=== PATIENT | female | born 1960 | race Caucasian/White ===

== ENCOUNTER 2017-07-06 11:32 | Emergency (ER) | payer MEDICARE, OTHER ==
[~2017-07-06] VITALS: Ht 162.6 cm; Wt 79.4 kg
[~2017-07-06 11:32] MED LIST: ALBUTEROL2.5 MG/0.5 INH; ASPIR-LOW81 MG PO; COMBIVENT INH14.7 GM INH; COMBIVENT RESPIM4 GM INH; COUMADIN3 MG PO; COUMADIN5 MG PO; CYCLOBENZAPRINE10 MG PO; FLUOXETINE HCL20 MG PO; GABAPENTIN300 MG PO; HYDROCODON-ACE1 EA11 PO; K-TAB10 MEQ; NORCO 5-325 TA1 EACH PO; POTASSIUM CHLO20 ME1 PO; PRAVACHOL40 MG PO; PRAVASTATIN SOD80 MG PO; PREDNISONE20 MG PO; SEROQUEL200 MG PO; TOPAMAX100 MG PO; TOPIRAMATE50 MG PO; ULTRA-LIGHT RO1 EACH MISC; WARFARIN SODIUM3 MG PO; ZYRTEC10 M3 PO
--- OUTSIDE RECORDS SUMMARY | 2017-07-06 13:43 | XMS ---
Demographics + + + | Address | [address] | | | [place] [address] | + + + | Preferred Language | Unknown | + + + | Marital Status | Unknown | + + + | Hindu Affiliation | Unknown | + + + | Race | Unknown | + + + | Ethnic Group | Unknown | + + + Author + + + | Author | [facility] | + + + | Organization | [facility] | + + + | Address | 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 | Role | Phone | + + + + Unavailable | Unavailable | + + + + PROBLEMS + + + + + + + + | Type | Condition | ICD9-CM | [id number] | Onset | Condition | SNOMED | | | | Code | Code | Dates | Status | Code | + + + + + + + + | Problem | CVA LATE | 438.9 | | | Active | [id number] | | | EFFECT - | | | | | | | | SEGUELAE | | | | | | + + + + + + + + | Problem | LONG-TERM | V58.61 | | | Active | [id number] | | | USE | | | | | | | | ANTICOAGUL | | | | | | + + + + + + + + | Problem | HX | V12.54 | | | Active | [id number] | | | TIA/STROKE | | | | | | | | W/O RESID | | | | | | + + + + + + + + | Assessment | 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 | 03 January, | Active | [id number] | | | 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 | | | | | | | | lumbar | | | | | | | | spine | | | | | | + + + + + + + + | Assessment | Sciatica | M54.30 | | 19 January, | Active | [id number] | | | | | | 2017 | | | + + + + + + + + | Problem | Insect | W57.XXXA | | | Active | [id number] | | | bite, | | | | | | | | initial | | | | | | | | encounter | | | | | | + + + + + + + + | Problem | Cellulitis | | L03.119 | | Active | [id number] | | | of | | | | | | | | unspecifie | | | | | | | | d part of | | | | | | | | limb | | | | | | + + + + + + + + | Problem | Breast | V76.10 | | | Active | [id number] | | | screening | | | | | | + + + + + + + + | Problem | Shoulder | 726.10 | | | Active | [id number] | | | bursitis | | | | | | + + + + + + + + | 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 | | | | | | | | cardiovasc | | | | | | | | ular | | | | | | | | disease | | | | | | + + + + + + + + | Problem | Hyperlipem | | E78.5 | | Active | [id number] | | | ia | | | | | | + + + + + + + + ALLERGIES + + + + +--------+ | Substance | Reaction | Event Type | Date | Status | + + + + +--------+ | Dilantin | rash | Drug Allergy | January, | Active | + + + + +--------+ | Depakote | seizures | Drug Allergy | January, | Active | + + + + +--------+ | Benadryl | wires | Drug Allergy | January, | Active | + + + + +--------+ SOCIAL HISTORY No smoking Hx information available PLAN OF CARE VITAL SIGNS + + + + | Height | 64 in | 2017-01-19 | + + + + | Weight | 175.8 lbs | 2017-01-19 | + + + + | BMI | 30.17 kg/m2 | 2017-01-19 | + + + + | Temperature | 98.5 degrees Fahrenheit | 2017-01-19 | + + + + | Heart Rate | 72 /min | 2017-01-19 | + + + + | Blood pressure systolic | 115 mm Hg | 2017-01-19 | + + + + | Blood pressure diastolic | 68 mm Hg | 2017-01-19 | + + + + MEDICATIONS + + + + + + + +--------+ | Medicati | Instruct | Dosage | Frequenc | Start | End Date | Duration | Status | | on | ions | | y | Date | | | | + + + + + + + +--------+ | Fluoxeti | Orally | TAKE 2 | 24h | 21 Oct, | | | Active | | ne HCl | Once a | CAPSULE | | 2016 | | | | | 20 MG | day | BY MOUTH | | | | | | | | | EVERY | | | | | | | | | MORNING | | | | | | + + + + + + + +--------+ | Quetiapi | | TAKE ONE | | | | 30 | Active | | ne | | TABLET | | | | | | | Fumarate | | BY MOUTH | | | | | | | 200 | | AT | | | | | | | | | BEDTIME | | | | | | + + + + + + + +--------+ | Warfarin | | TAKE 1 | | | | | Active | | Sodium | | TABLET | | | | | | | 3 | | BY MOUTH | | | | | | | | | ON | | | | | | | | | TUESDAY | | | | | | | | | THRU | | | | | | | | | TUESDAY | | | | | | | | | , THEN | | | | | | | | | TAKE THE | | | | | | | | | 4 MG ON | | | | | | | | | FRIDAYS | | | | | | + + + + + + + +--------+ | Topirama | | TAKE 3 | | | | 30 | Active | | te 50 | | TABLETS | | | | | | | | | BY MOUTH | | | | | | | | | TWICE | | | | | | | | | DAILY | | | | | | + + + + + + + +--------+ | Seroquel | Orally | 1 tablet | 24h | | | 30 | Active | | 200 | Once a | at | | | | | | | | day | bedtime | | | | | | + + + + + + + +--------+ | Gabapent | po tid | 1 tab | 8h | | | 30 | Active | | in 300 | | | | | | | | + + + + + + + +--------+ | KCL 20 | | 1 tablet | 24h | | | 90 | Active | + + + + + + + +--------+ | Pravasta | | TAKE 1 | | | | 30 | Active | | tin | | TABLET | | | | | | | Sodium | | BY MOUTH | | | | | | | 80 | | EVERY | | | | | | | | | DAY | | | | | | + + + + + + + +--------+ | Combiven | inh qid | 1 puffs | 6h | | | 30 | Active | | t | | | | | | | | | Inhaler | | | | | | | | | 0 | | | | | | | | + + + + + + + +--------+ RESULTS No Results PROCEDURES + + + + + | Procedure | Date Ordered | Related Diagnosis | Body Site | + + + + + | Office Visit, Est | January 19, 2017 | | | | Pt., Level 3 | | | | + + + + + IMMUNIZATIONS No Known Immunizations"
--- NOTE | 2017-07-06 22:43 | EKG ---
[facility] [address] [place] [address] Signed Normal sinus rhythm Low voltage QRS Borderline ECG When compared with ECG of 12-NOV-2016 13:44, No significant change was found Confirmed by GUILLERMINA FRAUSTO MD ([id number]) on 07/06/2017 10:43:30 PM Electronically Signed By: GUILLERMINA FRAUSTO MD 07/06/17 2243 PATIENT NAME: MACIE ESPINOSA Electrocardiogram DATE OF : 58 PHYSICIAN: GUILLERMINA FRAUSTO MD REPORT #: [id number] REPORT IS CONFIDENTIAL AND NOT TO BE RELEASED WITHOUT AUTHORIZATION
== END 2017-07-06 14:21 | disposition home or self-care (01) ==
LOC: ED 11:32
DX: F80.81 Childhood onset fluency disorder (principal); J45.909 Unspecified asthma, uncomplicated; F32.9 Major depressive disorder, single episode, unspecified; F41.9 Anxiety disorder, unspecified; E78.5 Hyperlipidemia, unspecified; Z86.718 Personal history of other venous thrombosis and embolism; Z87.891 Personal history of nicotine dependence; Z90.89 Acquired absence of other organs; Z90.49 Acquired absence of other specified parts of digestive tract; Z98.51 Tubal ligation status; Z88.8 Allergy status to other drugs, medicaments and biological substances; Z79.01 Long term (current) use of anticoagulants; Z79.899 Other long term (current) drug therapy; Z86.73 Personal history of transient ischemic attack (TIA), and cerebral infarction without residual deficits
CPT/HCPCS: 36415; 51701; 70450; 71010; 80053; 84484; 85025; 85610; 85730; 93005; 93010; 99284

== ENCOUNTER 2018-04-03 19:44 | Emergency (ER) | payer MEDICARE ==
[~2018-04-03] VITALS: Ht 162.6 cm; Wt 77.1 kg
[2018-04-03] MEDS ORDERED: ELIQUIS5 MG PO (20:54)
== END 2018-04-03 21:55 | disposition home or self-care (01) ==
LOC: ED 19:44
DX: I82.412 Acute embolism and thrombosis of left femoral vein (principal); I82.4Z2 Acute embolism and thrombosis of unspecified deep veins of left distal lower extremity; Z87.891 Personal history of nicotine dependence; Z88.8 Allergy status to other drugs, medicaments and biological substances; Z79.899 Other long term (current) drug therapy
CPT/HCPCS: 36415; 80053; 85025; 85610; 85730; 93971; 99284